=== PATIENT | male | born 1955 | race African-American/Black ===

== ENCOUNTER → 2021-02-27 | Outpatient (CLI) | payer BC ==
--- NOTE | 2021-03-05 14:24 | SLEEP ---
DATE OF STUDY: 02/27/2021 SLEEP STUDY ATTENDING PHYSICIAN: Ton Gilliam MD. The patient is a 65-year-old who weighs 220 pounds with a BMI of 29. The patient's [facility] score was 22. The patient underwent split night study performed at [facility]. During the night of study, the patient spent 439 minutes in bed and slept for 357 minutes with a sleep efficiency of 81%. Sleep latency was 24 minutes with a REM latency of 64 minutes. Sleep architecture showed normal stage 1 and stage 2 sleep, increased slow wave and normal REM sleep. During the initial diagnostic portion of the study, the patient slept for 80 minutes. During that time, there was 1 obstructive apnea, no mixed apneas, 3 central apneas and 39 hypopneas. The patient's AHI was 32 per hour with a supine AHI of 37 per hour and REM AHI of 29 per hour. EKG monitoring revealed normal sinus rhythm, average heart rate 79 beats per minute. Nocturnal oximetry study revealed an average oxygen saturation of 92%, 11 minutes were spent with oxygen saturation between 80% and 89%. No PLMs observed. The patient was started on CPAP at 5 cm water and titrated up to 9 cm water. At the final pressure, the patient slept for 45 minutes. The patient had supine sleep, but no REM sleep. The patient's AHI was reduced to 5 per hour. IMPRESSION: 1. Severe obstructive sleep apnea at an AHI of 32 per hour. 2. Nocturnal hypoxia secondary to obstructive sleep apnea, but resolved with CPAP. 3. No clinically significant periodic limb movements. RECOMMENDATIONS: 1. CPAP at 9 cm water completely eliminated the patient's sleep apnea and should be used on a nightly basis. 2. Follow up in 4-6 weeks to assess compliance with CPAP and to document clinical improvement. 3. Weight loss is advised. 4. Avoid [employer] depressants. 5. Cautioned regarding driving until symptoms of sleep apnea resolve with the use of CPAP. JIGNESH CHEN MD DR: SAHIL/ute JOB#: [id number] / [id number] [facility] [place] TON GILLIAM MD
== END ==
LOC: SLPLAB 18:50
PROVIDERS: ATTEND Internal Medicine Critical Care Medicine
DX: G47.33 Obstructive sleep apnea (adult) (pediatric) (principal)
CPT/HCPCS: 95810